=== PATIENT | female | born 1990 | race Caucasian/White ===

== ENCOUNTER 2016-11-12 21:19 | Emergency (ER) | payer OTHER ==
--- NOTE | 2016-11-12 21:36 | EDPHY ---
H & P Time Seen by Provider: 11/12/16 21:29 HPI/ROS: CHIEF COMPLAINT: Dog bite HISTORY OF PRESENT ILLNESS: the patient is a 25-year-old female who comes to the emergency department because a small dog bit her on her right little finger. She has several small abrasions to that finger. No puncture wounds. Normal range of motion. Normal sensation and capillary refill. REVIEW OF SYSTEMS: Constitutional: denies: chills, fever, recent illness, recent injury EENTM: denies: blurred vision, double vision, nose congestion Respiratory: denies: cough, shortness of breath Cardiac: denies: chest pain, irregular heart rate, lightheadedness, palpitations Gastrointestinal/Abdominal: denies: abdominal pain, diarrhea, nausea, vomiting, blood streaked stools Genitourinary: denies: dysuria, frequency, hematuria, pain Musculoskeletal: denies: joint pain, muscle pain Skin: See HP Neurological: denies: headache, numbness, paresthesia, tingling, dizziness, weakness Hematologic/Lymphatic: denies: blood clots, easy bleeding, easy bruising Immunologic/allergic: denies: HIV/AIDS, transplant EXAM: GENERAL: Well-appearing, well-nourished and in no acute distress. HEAD: Atraumatic, normocephalic. EYES: Pupils equal round and reactive to light, extraocular movements intact, sclera anicteric, conjunctiva are normal. ENT: TMs normal, nares patent, oropharynx clear without exudates. Moist mucous membranes. NECK: Normal range of motion, supple without lymphadenopathy or JVD. LUNGS: Breath sounds clear to auscultation bilaterally and equal. No wheezes rales or rhonchi. HEART: Regular rate and rhythm without murmurs, rubs or gallops. ABDOMEN: Soft, nontender, normoactive bowel sounds. No guarding, no rebound. No masses appreciated. BACK: No CVA tenderness, no spinal tenderness, step-offs or deformities EXTREMITIES: Normal range of motion, no pitting or edema. No clubbing or cyanosis. NEUROLOGICAL: Cranial nerves II through XII grossly intact. Normal speech, normal gait. 5/5 strength, normal movement in all extremities, normal sensation PSYCH: Normal mood, normal affect. SKIN: see HPI Source: Patient Exam Limitations: No limitations - Medical/Surgical History Hx Asthma: No Hx Chronic Respiratory Disease: No Hx Diabetes: No Hx Cardiac Disease: No Hx Renal Disease: No Hx Cirrhosis: No Hx Alcoholism: No - Family History Significant Family History: No pertinent family hx - Social History Alcohol Use: Sober Drug Use: None Constitutional: Initial Vital Signs Temperature (C) 37.0 C 11/12/16 21:23 Heart Rate 66 11/12/16 21:23 Respiratory Rate 16 11/12/16 21:23 Blood Pressure 115/85 H 11/12/16 21:23 O2 Sat (%) 97 11/12/16 21:23 O2 Delivery Mode Room Air Allergies/Adverse Reactions: No Known Allergies Allergy (Verified 11/12/16 21:46) Home Medications: Medication Instructions Recorded Amoxicillin/Clavulanate Pot 875 mg PO BID #14 tab 11/12/16 [Augmentin 875Mg] Fluconazole [Diflucan (*)] 150 mg PO ONCE #1 tab 11/12/16 None 11/12/16 Medical Decision Making ED Course/Re-evaluation: the patient has very minor abrasions. We discussed the risk of wound infection. I feel that is very low. We had agreed to wait and see. I will give her a prescription for Augmentin case he begins to have symptoms. We discussed follow-up and indications for returning. She does not feel that there is a foreign body. Differential Diagnosis: Partial list of the Differential diagnosis considered include but were not limited to; Abrasion, puncture and although unlikely based on the history and physical exam, I also considered foreign body, vascular injury, nerve injury, tendon injury. - Data Points Medications Given: Discontinued Medications Diphtheria/Tetanus/Acell Pertussis (Boostrix) 0.5 ml IM .ONCE ONE Stop: 11/12/16 21:56 Last Admin: 11/12/16 21:54 Dose: 0.5 ml Departure - Departure Disposition: Home, Routine, Self-Care Clinical Impression: Dog bite Qualifiers: Encounter type: initial encounter Qualified Code(s): W54.0XXA - Bitten by dog, initial encounter Condition: Fair Instructions: Animal Bite (ED) Additional Instructions: If your wound begins to look infected after a few days begin taking the antibiotics as we discussed. Referrals: Maria E Lock MD [Medical Doctor] - As per Instructions Prescriptions: Amoxicillin/Clavulanate Pot [Augmentin 875Mg] 875 mg PO BID #14 tab Fluconazole [Diflucan (*)] 150 mg PO ONCE #1 tab
[2016-11-12 21:53] VITALS: BP 115/85; PULSE 66; RESP 16; TEMP 98.6; O2SAT 97
[2016-11-12] MEDS ORDERED: TDAP ADULT 0.5 ML INJ (BOOSTRIX) IM ONE (21:55)
== END 2016-11-12 21:51 | disposition home or self-care (01) ==
LOC: CED 21:19
DX: S61.256A Open bite of right little finger without damage to nail, initial encounter (principal); Z23 Encounter for immunization; W54.0XXA Bitten by dog, initial encounter; Y92.009 Unspecified place in unspecified non-institutional (private) residence as the place of occurrence of the external cause